=== PATIENT | female | born 1955 | race Two or more races ===

== ENCOUNTER 2023-12-27 14:54 | Outpatient (AMB) | payer MEDICARE, SELFPAY ==
[2023-12-27 15:18] VITALS: BP 154/71; PULSE 73; RESP 18; TEMP 36.5; O2SAT 96; BMI 28.3
--- NOTE | 2023-12-27 15:18 | PD.ORTHCLVIS ---
Vital signs 12/27/23 15:18 Height 1.52 m Height Method Stated Weight 65.317 kg Weight Measurement Method Standing Scale BMI 28.3 BP 154/71 H Blood Pressure Source Automatic Cuff Blood Pressure Location Right Upper Arm Position Sitting Respiration 18 Pulse 73 Pulse Source Monitor Temp 97.7 F Temp Source Temporal Artery Scan Pulse Oximetry (%) 96 Oxygen Delivery Method Room Air Med/Allergies Allergies & Medications Allergies No Known Drug Allergies Allergy (Verified 12/02/23 14:05) Subjective Visit Visit for: follow up visit and knee Immunization / Flu Flu Vaccine in the Last 12 Months: No Flu Vaccine Exclusion Criteria: No Exclusion Criteria History of Present Illness Chief complaint: F/U Date of 1st surgery (if applicable): 09/28/23 Esperanza is 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 She is doing well. She has minimal pain. She has not started therapy yet Personal History Occupation: RETIRE Red flag PMH: none Pain Pain level (0-10): 7 Pain duration: ALL DAY Pain location: inside (medial) Pain quality: dull and aching Pain timing: night and increases with activity Associated signs & symptoms: numbness Ambulatory data Ambulatory device: none Treatments Improvement with previous injections: No Improvement with PT: No Improvement with NSAIDS: no Review of Systems Review of Systems: All systems negative unless otherwise noted in HPI. Exam Exam Patient is in no acute distress and is cooperative with the examination today. Patient has a normal mood and affect. Breathing is nonlabored. In no respiratory distress. Bilateral extremities were evaluated and demonstrates sensation intact to light touch. Palpable pedal pulses are present. No significant edema is present. Right knee demonstrates range of motion 5 to 100 degrees. Incision is clean dry and intact X-rays demonstrate a cemented knee revision in good alignment and position Assessment and Plan Problem List (1) Mechanical loosening of internal left knee prosthetic joint, sequela: Status: Acute Plan: Patient is doing well status post revision of her right total knee replacement for loosening. She has minimal pain. She is doing well with her range of motion. Advanced Care Planning Discussion Advance care planning discussed with:: patient Office Procedures GNS Level of Care Nursing/Assessment Patient Status: Established Patient Nursing Assessment/Reassesment: Medication Reconciliation, Update PMH in EMR and Vital Signs Coordination of Care: Complex Care and Chronic Disease 1-5, Education Complex Pt/Fam, Consent,records obtained, informed consent, 1 Ins Authorization, Results/Orders obtained and Staff clarify orders Established Patient Charge Established Patient Point Assignment: 110 Established Patient Point Charge: EP Level 3 (80-115) Past Medical History Past Medical History Have you ever been diagnosed with any of the following: Neurological Problems Seizures: No Cardiology Problems Hypercholesterolemia: Yes Congestive Heart Failure: No Hypertension: Yes Respiratory Problems Chronic Obstructive Pulmonary Disease (COPD): No Smoking: No Smoking Exposure: No Stomache/Intestinal Problems Obesity: Yes Genital/Urinary Problems Renal Disease: No Reproductive Problems Previous Pregnancies: No Musculoskeletal Problems Arthritis: Yes Endocrine Problems Diabetes Mellitus Type 1: No Diabetes Mellitus Type 2: No Other Problems Hospitalization: Yes (surgery) Shingles: No Blood Transfusions: No Blood Transfusion Reaction: No Anesthesia Reactions: No Chicken Pox: Yes Measles: Yes Mumps: Yes Cancer: No
== END 2023-12-27 15:27 | disposition home or self-care (01) ==
LOC: HODSRG 14:54
PROVIDERS: PCP Family Medicine; Referring Provider Family Medicine; Supervising Provider Orthopaedic Surgery Adult Reconstructive Orthopaedic Surgery; Visit Provider Orthopaedic Surgery Adult Reconstructive Orthopaedic Surgery
DX: Z47.1 Aftercare following joint replacement surgery (principal); Z96.651 Presence of right artificial knee joint; T84.03 Mechanical loosening of internal prosthetic joint; I10 Essential (primary) hypertension; E78.00 Pure hypercholesterolemia, unspecified
CPT/HCPCS: 99213; G0463